=== PATIENT | female | born 1955 ===

== ENCOUNTER 2023-05-07 05:10 | Day surgery (SDC) | payer OTHER ==
[2023-04-29 15:16] LABS: RH POSITIVE
[~2023-05-07] VITALS: Ht 162.6 cm; Wt 73.5 kg
[~2023-05-07 05:10] MED LIST: TOPROL XL25 M1 PO; VITAMIN D325 MC2 PO
[2023-05-07] MEDS ORDERED: CEFTRIAXONE SODIUM 2,000 MG VIAL ONE (07:07)
[2023-05-07] MEDS ORDERED: METRONIDAZOLE/SODIUM CHLORIDE 500 MG/100 ML PIGGYBACK IV ONE ×2 (07:07→08:45)
[2023-05-07] MEDS ORDERED: POVIDONE-IODINE 118 ML BOTT TOP ONE ×2 (08:45→08:47)
[2023-05-07] MEDS ORDERED: BUPIVACAINE HCL/MPF 0.5% 30ML VIAL IJ ONE (08:45)
[2023-05-07] MEDS ORDERED: HEMOSTATIC MATRIX 1 KIT KIT TOP ONE ×2 (08:45→08:47)
[2023-05-07] MEDS ORDERED: LIDOCAINE HCL 1%/Epi 20ML VIAL IJ ONE ×2 (08:45→08:47)
[2023-05-07] MEDS ORDERED: CEFTRIAXONE SODIUM 2,000 MG VIAL IV ONE (08:45)
[2023-05-07] MEDS ORDERED: COLACE100 MG PO (08:48)
[2023-05-07] MEDS ORDERED: NEURONTIN300 MG PO (08:48)
[2023-05-07] MEDS ORDERED: DIBUCAINE 15 GM OINT..GM. TUBE ONE (08:48)
[2023-05-07] MEDS ORDERED: TRAM1TAB98 PO (08:48)
[2023-05-07] MEDS ORDERED: BUPIVACAINE HCL/PF 0.5% 30ML ML ONE (08:49)
== END 2023-05-07 14:25 | disposition home or self-care (01) ==
LOC: CIR.AMB 05:10
PROVIDERS: ATTEND Surgery
DX: K64.1 Second degree hemorrhoids (principal); K64.8 Other hemorrhoids; K64.4 Residual hemorrhoidal skin tags; K62.89 Other specified diseases of anus and rectum; Z88.8 Allergy status to other drugs, medicaments and biological substances